=== PATIENT | male | born 1960 | race Two or more races ===

== ENCOUNTER 2023-12-23 09:40 | Day surgery (SDC) | payer OTHER, SELFPAY ==
[2023-12-21 09:08] VITALS: BMI 33.7
--- NOTE | 2023-12-22 12:33 | P.CONAN_ITS ---
Documented by User: Jennifer Gore NP 12/22/23 12:34 HPI - Anesthesia Eval Consult details Narrative: 63yo M for Bilateral Medial Eye Muscle Recession/Resection Medically cleared [facility] Past Medical History Medical History Acute otitis media Headache Cerebral meningioma Basal cell carcinoma Pre-diabetes HTN (hypertension) Surgical History Surgical History Hx of local excision of skin lesion Hx of inguinal hernia repair Hx of umbilical hernia repair No pertinent past surgical history Social History Social History Patient Tobacco Use Status: Never used Tobacco Meds Allergies Allergy/AdvReac Type Severity Reaction Status Date / Time No Known Allergies Allergy Verified 12/23/23 10:39 Home Medications Medication Instructions Recorded Confirmed Last Taken Type hydrochlorothiazide 25 mg tablet 25 mg PO DAILY 12/21/23 12/23/23 12/22/23 07:00 History ibuprofen 800 mg tablet 800 mg PO TID PRN Pain 12/21/23 12/21/23 Unknown History Exam Height,Weight and Vital Signs: Height 5 ft 4 in Weight 89.1 kg Assessment and Plan Assessment Anesthesia Assessment: Chart Reviewed Documented by User: Hollie Santacruz MD 12/23/23 10:58 [facility] Past Medical History Medical History Acute otitis media Headache Cerebral meningioma Basal cell carcinoma Pre-diabetes HTN (hypertension) Surgical History Surgical History Hx of local excision of skin lesion Hx of inguinal hernia repair Hx of umbilical hernia repair No pertinent past surgical history History of Problems with Anesthesia: No Social History Social History Patient Tobacco Use Status: Never used Tobacco Meds Allergies Allergy/AdvReac Type Severity Reaction Status Date / Time No Known Allergies Allergy Verified 12/23/23 10:39 Home Medications Medication Instructions Recorded Confirmed Last Taken Type hydrochlorothiazide 25 mg tablet 25 mg PO DAILY 12/21/23 12/23/23 12/22/23 07:00 History ibuprofen 800 mg tablet 800 mg PO TID PRN Pain 12/21/23 12/21/23 Unknown History Exam Airway Mallampati Class: III TM Dist: >3cm Neck ROM: Full Denture: Upper Loose/Missing/Broken Teeth: Yes, Upper and Lower Heart: RRR Lungs: CTA Assessment and Plan Assessment Anesthesia Assessment: Anesthesia Plan Discussed Final Anesthetic Review History of Problems with Anesthesia: No NPO: Yes ASA Class: II Final Preanesthetic Review: Meds/Allgs Chart Reviewed, Consent Obtained/Reviewed and Anes Risks/Benef Reviewed Patient Risk: Low Procedure Risk: Low Anesthetic Plan Anesthetic Plan: GA Disposition: Standard PACU
--- OUTSIDE RECORDS SUMMARY | 2023-12-23 09:42 | XMS_ITS | Continuity of Care Document ---
Author Name Unknown Organization [facility] As sociates Address [address] [place], [place] [address] [address] [place] [address]- Care Team Providers Care Manager Staffing Name Role Phone Horacio Boyd Primary Care Physician Encounter [facility] Date(s): 08/07/20 - 09/06/[address] [place] [address]- [facility] Allergies, Adverse Reactions, Alerts Substance Reaction Severity Status NKA Active Medications hydrochlorothiazide 25 mg oral tablet 25 mg, 1, tablet, By Mouth, Daily, Refills 0, Maintenance, 11/27/16 11:42:40 Start Date: 11/27/16 Status: Ordered ibuprofen 600 mg oral tablet TAKE 1 TAB BY MOUTH 4 (FOUR) TIMES DAILY NEEDED FOR PAIN Start Date: 11/16/17 Status: Ordered Problem List Condition Effective Dates Status Health Status Inform ant Obesity (BMI 30-39.9)(Confirmed) Active Cerebral meningioma(Confirmed) Active HTN (hypertension)(Confirmed) Active Encounter for screening colonoscopy(Confirmed) Active Umbilical hernia(Confirmed) Active Social History Social History Type Response Smoking Status Never smoker entered on: 07/31/17 Sex Medical Equipment Implanted Date:11/26/17Target Site:Groin Right Description Quantity MRI Company Model MESH 3D MAX LTWEIGHT RT LG 4 X6 - BARD ([id number]) 1 Bard Unknown MICHAELLE:{01}[id number]{17}[id number]{10}[facility] 0435 Assigning Authority:FDA
--- OUTSIDE RECORDS SUMMARY | 2023-12-23 09:42 | XMS_ITS | Continuity of Care Document ---
Author Name Unknown Organization [facility] Address [address] [place] [address]- Care Team Providers Care Director Of Staff Development Name Role Phone Sandy Velasquez Primary Care Physician [place] [facility] [place] 04/09[place]21 - 05/09/21 [facility] [address] [place] [address] Attending Physician: Robyn Pereira Admitting Physician: Robyn Pereira Referring Physician: AdmtrRobyn Allergies, Adverse Reactions, Alerts Substance Reaction Severity [...] (hypertension)(Confirmed) Active Encounter for screening colonoscopy(Confirmed) Active Postop check(Confirmed) Active Umbilical hernia(Confirmed) Active Social History Social History Type Response Smoking Status Never smoker entered on: 07/31/17 Sex Medical Equipment Implanted Date:09/10/20Target Site:Umbilicus Description Quantity MRI Company Model MESH VENTRALIGHT ECHO CIR 4. 5 - BARD ([id number]) 1 Bard Unknown MICHAELLE:{01}[id number] Assigning Author ity:FDA Implanted Date:11/26/17Target Site:Groin Right Description Quantity MRI Company Model MESH 3D MAX LTWEIGHT RT LG 4 X6 - BARD ([id number]) 1 Bard Unknown MICHAELLE:{01}[id number]{17}[id number]{10}[facility] 0435 Assigning Authority:FDA
--- OUTSIDE RECORDS SUMMARY | 2023-12-23 09:42 | XMS_ITS | Continuity of Care Document ---
Author Name Unknown Organization [facility] Address [address] [place] [address] [address] [place] [address]- Care Team Providers Care Journeyman Machinist Name Role Phone Sandy Velasquez Primary Care Physician [phone] Encounter [facility] Date(s): 03/08/21 - 04/11/[address] [place] [address]- Attending Physician: Amos Haley Referring Physician: Sandy Velasquez Allergies, Adverse Reactions, Alerts Substance Reaction Severity [...] VENTRALIGHT ECHO CIR 4. 5 - BARD ([id number]) 1 Bard Unknown MICHAELLE:{01}[id number] Assigning Author ity:FDA Implanted Date:11/26/17Target Site:Groin Right Description Quantity MRI Company Model MESH 3D MAX LTWEIGHT RT LG 4 X6 - BARD ([id number]) 1 Bard Unknown MICHAELLE:{01}[id number]{17}[id number]{10}[facility] 0435 Assigning Authority:FDA
--- OUTSIDE RECORDS SUMMARY | 2023-12-23 09:42 | XMS_ITS | Continuity of Care Document ---
Author Name Unknown Organization [facility] Address [address] [place] [address] ve [address] [place] [address]- Care Team Providers Care Test Lead Application Testing Name Role Phone Horacio Boyd Primary Care Physician En[place] [facility] [place] Date(s): 07/31/20 - 08/07/[address] [place] [address]- [place] Encounter Diagnosis Umbilical hernia(Discharge Diagnosis) - 07/31/20 Attending Physician: Amos Haley Referring Physician: Ester Pelaez MD Allergies, Adverse Reactions, Alerts Substance Reaction Severity [...] for screening colonoscopy(Confirmed) Active Umbilical hernia(Confirmed) Active Diagnosis Diagnosis Type Effective Dates Health Status Cl inical Service Informant Umbilical hernia Discharge Diagnosis 07/31/20 Procedures Procedure Date Related Diagnosis Body Site Status Laparoscopic robotic repair of right inguinal hernia using surgical mesh 2017 Completed Vital Signs Most recent to oldest [Reference Range]: 1 Height 164 cm (07/31/20 10:31 AM) Weight 94.3 kg (07/31/20 10:31 AM) Pulse Rate [55-90 bpm] 83 bpm (07/31/20 10:31 AM) Body Mass Index [18.5-24.99] 35.06 *>HHI* (07/31/20 10:31 AM) Blood Pressure [90-138/55-84 mm Hg] 161/ 90mm Hg *H* (07/31/20 10:31 AM) Respiratory Rate [16-30 br/min] 18 br/mi n (07/31/20 10:31 AM) Temperature [96.8-100.4 DegF] 97.3 DegF (07/31/20 10:31 AM) Blood pressure sites Arm, left (07/31/20 10:31 AM) Temperature Route Temporal (07/31/20 10:31 AM) Weight Obtained Via Standing scale (07/31/20 10:31 AM) Social History Social History Type Response Smoking Status Never smoker entered on: 07/31/17 Sex Medical Equipment Implanted Date:11/26/17Target Site:Groin Right Description Quantity MRI Company Model MESH 3D MAX LTWEIGHT RT LG 4 X6 - BARD ([id number]) 1 Bard Unknown MICHAELLE:{01}[id number]{17}[id number]{10}[facility] 0435 Assigning Authority:FDA
--- OUTSIDE RECORDS SUMMARY | 2023-12-23 09:42 | XMS_ITS | Continuity of Care Document ---
Author Name Unknown Organization [facility] Address [address] [place] [address]- Care Team Providers Care Air Duct Mechanic Name Role Phone Horacio Boyd Primary Care Physician [phone] En[place] [facility] [place] Date(s): 10/05/19 - 11/16/[address] [address]- [facility] Attending Physician: Jonnie Bullock MD Admitting Physician: Jonnie Bullock MD Referring Physician: Horacio Boyd Allergies, Adverse Reactions, Alerts Substance Reaction Severity Status NKA Active Medications fluocinonide 0.05% topical cream 1 application, Topically, 2 times a day, # 120 Gm, 0 Refills, Maintenance, 11/16/17 11:03:03, Cream Start Date: 11/16/17 Status: Ordered hydrochlorothiazide 25 mg oral tablet 25 mg, 1, tablet, By Mouth, Daily, Refills 0, Maintenance, 11/27/16 11:42:40 Start Date: 11/27/16 Status: Ordered ibuprofen 600 mg oral tablet TAKE 1 TAB BY MOUTH 4 (FOUR) TIMES DAILY NEEDED FOR PAIN Start Date: 11/16/17 Status: Ordered Problem List Condition Effective Dates Status Health Status Inform ant Encounter for screening colonoscopy(Confirmed) Active Social History Social History Type Response Smoking Status Never smoker entered on: 07/31/17 Sex Medical Equipment Implanted Date:11/26/17Target Site:Groin Right Description Quantity MRI Company Model MESH 3D MAX LTWEIGHT RT LG 4 X6 - BARD ([id number]) 1 Bard Unknown MICHAELLE:{01}[id number]{17}[id number]{10}[facility] 0435 Assigning Authority:FDA
--- OUTSIDE RECORDS SUMMARY | 2023-12-23 09:42 | XMS_ITS | Continuity of Care Document ---
Author Name Unknown Organization [facility] ter Address [address] [place] [address]- Care Team Providers Care Wing Commander Name Role Phone Sandy Velasquez Primary Care Physician [phone] Encounter [facility] Date(s): 03/19/23 - 05/21/[address] [address]- Attending Physician: Horacio Boyd Admitting Physician: Horacio Boyd Referring Physician: Horacio Boyd Allergies, Adverse Reactions, Alerts No Known Allergies Medications hydrochlorothiazide 25 mg oral tablet 25 mg, 1, tablet, By Mouth, Daily, Refills 0, Maintenance, 11/27/16 11:42:40 Start Date: 11/27/16 Status: Ordered ibuprofen 600 mg oral tablet TAKE 1 TAB BY MOUTH 4 (FOUR) TIMES DAILY NEEDED FOR PAIN Start Date: 11/16/17 Status: Ordered Problem List Condition Confirmation Course Effective Dates Status Health St atus Informant Obesity (BMI 30-39.9) Confirmed Active Cerebral meningioma Confirmed Active HTN (hypertension) Confirmed Active Encounter for screening colonoscopy Confirmed Active Postop check Confirmed Active Umbilical hernia Confirmed Active Social History Social History Type Response Smoking Status Never smoker entered on: 07/31/17 Sex Implantable Device List Procedure Provider Procedure Date Device Type Site Repair Hernia Umbilical Laparoscopic Samra Azevedo MD 09/10/20 Unknown Umbilicus Device Identifier Serial Number Lot or Batch Number Manufacturing Date Expiration Date Distinct Identification Code MRI Safety Implantable Status Assigning Authority [id number] Unknown [id number] Unknown 06/05/20 Unknown Unknown Active GS1 Procedure Provider Procedure Date Device Type Site Robotic XI Repair Hernia Inguinal Laparo Samra Azevedo MD 11/26/17 Unknown Groin Right Device Identifier Serial Number Lot or Batch Number Manufacturing Date Expiration Date Distinct Identification Code MRI Safety Implantable Status Assigning Authority [id number] Unknown [id number] Unknown 06/05/22 Unknown Unknown Active GS1 Patient Care team information Care Team Personnel Name: Sandy Velasquez Position: [facility] Outreach Member Role: PCP Address: Address: [address] [place] [address]- Care Team Related Persons Name: MIRNA THOMAS Address: [address] [place] [address] Name: PARI BLANCA Address: home [address] [place] [address]
--- OUTSIDE RECORDS SUMMARY | 2023-12-23 09:42 | XMS_ITS | Continuity of Care Document ---
Author Name Unknown Organization [facility] Address [address] [place] [address]- Care Team Providers Care House Detective Name Role Phone Sandy Velasquez Primary Care Physician [id number] Date(s): 04/09/21 - 05/15/22 [facility] [address] [place] [address] Discharge Disposition: A-D/C Home Attending Physician: James Dixon MD Admitting Physician: James Dixon MD Referring Physician: Horacio Boyd Allergies, Adverse [...] Equipment Implanted Date:09/10/20Target Site:Umbilicus Description Quantity MRI [employer] Model MESH VENTRALIGHT ECHO CIR 4. 5 - BARD ([id number]) 1 Bard Unknown MICHAELLE:{01}[id number] Assigning Author ity:FDA Implanted Date:11/26/17Target Site:Groin Right Description Quantity MRI Company Model MESH 3D MAX LTWEIGHT RT LG 4 X6 - BARD ([id number]) 1 Bard Unknown MICHAELLE:{01}[id number]{17}[id number]{10}[facility] 0435 Assigning Authority:FDA
--- OUTSIDE RECORDS SUMMARY | 2023-12-23 09:43 | XMS_ITS | Continuity of Care Document ---
Author Name Unknown Organization [facility] Address [address] [place] [address]- Care Team Providers Care Provisioning Analyst Name Role Phone Horacio Boyd Primary Care Physician En[place] [facility] [place] Date(s): 10/17/19 - 12/10/[address] [address]- [facility] Attending Physician: Jonnie Bullock MD Admitting Physician: [...] LTWEIGHT RT LG 4 X6 - BARD ([id number]) 1 Bard Unknown MICHAELLE:{01}[id number]{17}[id number]{10}[facility] 0435 Assigning Authority:FDA
--- OUTSIDE RECORDS SUMMARY | 2023-12-23 09:43 | XMS_ITS | Continuity of Care Document ---
Author Name Unknown Organization [facility] Address [address] [place] [address]- Care Team Providers Care Spool Sorter Name Role Phone Horacio Boyd Primary Care Physician [phone] [place] [facility] [place] 11/10/19 - 11/20/[address] [address] [facility] Attending Physician: Robyn Pereira Admitting Physician: Robyn Pereira Referring Physician: Robyn Pereira Allergies, Adverse Reactions, Alerts Substance Reaction Severity [...] LTWEIGHT RT LG 4 X6 - BARD ([id number]) 1 Bard Unknown MICHAELLE:{01}[id number]{17}[id number]{10}[facility] 0435 Assigning Authority:FDA
--- OUTSIDE RECORDS SUMMARY | 2023-12-23 09:43 | XMS_ITS | Continuity of Care Document ---
Author Name Unknown Organization [facility] Address [address] [place] [address] [address] [place] [address]- Care Team Providers Care Deputy Sheriff Lieutenant Name Role Phone Sandy Velasquez Primary Care Physician En[place] [facility] [place] 03/12/21 - 04/11/[address] [place], [place] [address] Attending Physician: Admsebastian, Robyn Admitting Physician: AdmtrRobyn Referring Physician: Admtr, Ar8 Allergies, Adverse Reactions, Alerts Substance Reaction Severity [...] VENTRALIGHT ECHO CIR 4. 5 - BARD ([id number]) 1 Bard Unknown MICHAELLE:{01}[id number] Assigning Author ity:FDA Implanted Date:11/26/17Target Site:Groin Right Description Quantity MRI Company Model MESH 3D MAX LTWEIGHT RT LG 4 X6 - BARD ([id number]) 1 Bard Unknown MICHAELLE:{01}[id number]{17}[id number]{10}[facility] 0435 Assigning Authority:FDA
--- OUTSIDE RECORDS SUMMARY | 2023-12-23 09:43 | XMS_ITS | Continuity of Care Document ---
Author Name Unknown Organization [facility] Address [address] [place], [place] [address] [address] [place] [address]- Care Team Providers Care Nitro Man Name Role Phone Horacio Boyd Primary Care Physician En[place] [facility] [place] [place] Date(s): 10/15/20 - 11/14/[address] [place], [place] [address] Attending Physician: Robyn Pereira Admitting Physician: Admtr, Robyn Referring Physician: Admtr, Robyn Allergies, Adverse Reactions, Alerts Substance Reaction Severity [...] VENTRALIGHT ECHO CIR 4. 5 - BARD ([id number]) 1 Bard Unknown MICHAELLE:{01}[id number] Assigning Author ity:FDA Implanted Date:11/26/17Target Site:Groin Right Description Quantity MRI Company Model MESH 3D MAX LTWEIGHT RT LG 4 X6 - BARD ([id number]) 1 Bard Unknown MICHAELLE:{01}[id number]{17}[id number]{10}[facility] 0435 Assigning Authority:FDA
--- OUTSIDE RECORDS SUMMARY | 2023-12-23 09:43 | XMS_ITS | Continuity of Care Document ---
Author Name Unknown Organization [facility] ter Address [address] [place] [address]- Care Team Providers Care Escort Patients Name Role Phone Horacio Boyd Primary Care Physician En[place] [facility] Date(s): 09/10/20 - 09/10/[address] [address]- [facility] Discharge Disposition: A-D/C Home Attending Physician: Samra Azevedo MD Admitting Physician: Samra Azevedo MD Referring Physician: Samra Azevedo MD Allergies, Adverse Reactions, Alerts Substance Reaction Severity Status NKA Active Medications hydrochlorothiazide 25 mg oral tablet 25 mg, 1, tablet, By Mouth, Daily, Refills 0, Maintenance, 11/27/16 11:42:40 Start Date: 11/27/16 Status: Ordered ibuprofen 600 mg oral tablet TAKE 1 TAB BY MOUTH 4 (FOUR) TIMES DAILY NEEDED FOR PAIN Start Date: 11/16/17 Status: Ordered oxyCODONE 5 mg oral tablet 5 mg, 1, tablet, By Mouth, Every 4 hours, PRN, for 3 days, # 12 tablet, Refills 0, Tot. Refills 0, Acute 09/13/20 14:47:00 EST, for pain, 09/10/20 14:47:00 EST, Route to Pharmacy Electronically, [facility], Partial fill upon patient requ... Start Date: 09/10/20 Stop Date: 09/13/20 Status: Ordered Problem List Condition Effective Dates Status Health Status Inform ant Obesity (BMI 30-39.9)(Confirmed) Active Cerebral meningioma(Confirmed) Active HTN (hypertension)(Confirmed) Active Encounter for screening colonoscopy(Confirmed) Active Umbilical hernia(Confirmed) Active Procedures Procedure Date Related Diagnosis Body Site Status Laparoscopic umbilical herni oplasty using synthetic mesh 09/10/20 Completed Vital Signs Most recent to oldest [Reference Range]: 1 2 3 Height 165.10 cm (09/10/20 1:01 PM) 165.10 cm (09/04/20 4:21 PM) Weight 90.4 kg (09/10/20 1:01 PM) 95.91 kg (09/04/20 4:21 PM) Oxygen Saturation [94-100 %] 95 % (09/10/20 5:15 PM) 95 % (09/10/20 5:00 PM) 94 % (09/10/20 4:45 PM) Pulse Rate [55-90 bpm] 88 bpm (09/10/20 1:01 PM) Body Mass Index [18.5-24.99] 33.16 *>HHI* (09/10/20 1:01 PM) 35.19 *>HHI* (09/04/20 4:21 PM) Blood Pressure [90-138/55-84 mm Hg] 117/85mm Hg (09/10/20 5:00 PM) 120/78mm Hg (09/10/20 4:45 PM) 129/94mm Hg (09/10/20 4:30 PM) Respiratory Rate [16-30 br/min] 16 br/min (09/10/20 5:00 PM) 13 br/min *L* (09/10/20 4:45 PM) 9 br/min *L* (09/10/20 4:30 PM) Temperature [96.8-100.4 DegF] 97.6 DegF (09/10/20 5:00 PM) 97.1 DegF (09/10/20 3:00 PM) 97.4 DegF (09/10/20 1:01 PM) Liters per Minute 5 L/min (09/10/20 3:00 PM) Mode of Delivery (Oxygen) Room air (09/10/20 5:15 PM) Room air (09/10/20 4:00 PM) Room air (09/10/20 3:15 PM) Blood pressure sites Arm, right (09/10/20 4:00 PM) Arm, right (09/10/20 3:00 PM) Arm, right (09/10/20 1:01 PM) Temperature Route Temporal (09/10/20 5:00 PM) Temporal (09/10/20 3:00 PM) Temporal (09/10/20 1:01 PM) Dry Weight 90.4 kg (09/10/20 1:01 PM) 95.91 kg (09/04/20 4:21 PM) Weight Obtained Via Standing scale (09/10/20 1:01 PM) Patient/family stated (09/04/20 4:21 PM) Dry Weight Obtained Via Standing scale (09/10/20 1:01 PM) Social History Social History Type Response Smoking Status Never smoker entered on: 07/31/17 Sex Medical Equipment Implanted Date:09/10/20Target Site:Umbilicus Description Quantity MRI In[employer] Model MESH VENTRALIGHT ECHO CIR 4. 5 - BARD ([id number]) 1 Bard Unknown MICHAELLE:{01}[id number] Assigning Author ity:FDA Implanted Date:11/26/17Target Site:Groin Right Description Quantity MRI In[employer] Model MESH 3D MAX LTWEIGHT RT LG 4 X6 - BARD ([id number]) 1 Bard Unknown MICHAELLE:{01}[id number]{17}[id number]{10}[facility] 0435 Assigning Authority:FDA
--- OUTSIDE RECORDS SUMMARY | 2023-12-23 09:43 | XMS_ITS | Continuity of Care Document ---
Author Name Unknown Organization [facility] Address [address] [place] [address], [address] [place] [address]- Care Team Providers Care Horse Farm Manager Name Role Phone Sandy Velasquez Primary Care Physician [phone] Encounter [facility] [place] Date(s): 05/21/22 - 06/20/22 [facility] [address] [place] [address], [address] [place], [place] [address] Attending Physician: Robyn Pereira Admitting Physician: AdmRobyn cortes Referring Physician: AdmtrRobyn Allergies, Adverse Reactions, Alerts No Known Allergies [...] VENTRALIGHT ECHO CIR 4. 5 - BARD ([id number]) 1 Bard Unknown MICHAELLE:{01}[id number] Assigning Author ity:FDA Implanted Date:11/26/17Target Site:Groin Right Description Quantity MRI Company Model MESH 3D MAX LTWEIGHT RT LG 4 X6 - BARD ([id number]) 1 Bard Unknown MICHAELLE:{01}[id number]{17}[id number]{10}[facility] 0435 Assigning Authority:FDA
--- OUTSIDE RECORDS SUMMARY | 2023-12-23 09:43 | XMS_ITS | Continuity of Care Document ---
Author Name Unknown Organization [facility] Address [address] [place] [address]- Care Team Providers Care Pantographer Name Role Phone Horacio Boyd Primary Care Physician [phone] [place] [facility] [place]16[place] 01/22/20 [facility] [address] [place] [address] [facility] Discharge Disposition: A-D/C Home Attending Physician: James Dixon MD Admitting Physician: James Dixon MD Referring Physician: Galen Santos MD Allergies, Adverse Reactions, Alerts Substance Reaction [...] Inform ant Encounter for screening colonoscopy(Confirmed) Active Vital Signs Most recent to oldest [Reference Range]: 1 Height 164 cm (09/28/19 2:42 PM) Weight 95.9 kg (09/28/19 2:42 PM) Pulse Rate [55-90 bpm] 89 bpm (09/28/19 2:42 PM) Body Mass Index [18.5-24.99] 35.66 *>HHI* (09/28/19 2:42 PM) Blood Pressure [90-138/55-84 mm Hg] 153/ 90mm Hg *H* (09/28/19 2:42 PM) Temperature [96.8-100.4 DegF] 97.4 DegF (09/28/19 2:42 PM) Blood pressure sites Arm, left (09/28/19 2:42 PM) Temperature Route Temporal (09/28/19 2:42 PM) Dry Weight 95.9 kg (09/28/19 2:42 PM) Weight Obtained Via Standing scale (09/28/19 2:42 PM) Dry Weight Obtained Via Standing scale (09/28/19 2:42 PM) Social History Social History Type Response Smoking Status Never smoker entered on: 07/31/17 Sex Medical Equipment Implanted Date:11/26/17Target Site:Groin Right Description Quantity MRI Company Model MESH 3D MAX LTWEIGHT RT LG 4 X6 - BARD ([id number]) 1 Bard Unknown MICHAELLE:{01}[id number]{17}[id number]{10}[facility] 0435 Assigning Authority:FDA
--- OUTSIDE RECORDS SUMMARY | 2023-12-23 09:43 | XMS_ITS | Continuity of Care Document ---
Author Name Unknown Organization [facility] Address [address] [place] [address], [address] [place] [address]- Care Team Providers Care Package Dyer Name Role Phone Sandy Velasquez Primary Care Physician [phone] Encounter [facility] [place] Date(s): 05/01/22 - 06/20/22 [facility] [address] [place] [address], [address] [place] [address]- Attending Physician: Deandre Maguire MD Referring Physician: Horacio Boyd Allergies, Adverse [...] VENTRALIGHT ECHO CIR 4. 5 - BARD ([id number]) 1 Bard Unknown MICHAELLE:{[id number] Assigning Author ity:FDA Implanted Date:11/26/17Target Site:Groin Right Description Quantity MRI Company Model MESH 3D MAX LTWEIGHT RT LG 4 X6 - BARD ([id number]) 1 Bard Unknown MICHAELLE:{[id number] Assigning Authority:FDA
--- OUTSIDE RECORDS SUMMARY | 2023-12-23 09:43 | XMS_ITS | Continuity of Care Document ---
Author Name Unknown Organization [facility] Address [address] [address]- Care Team Providers Care Principal Embedded Software Engineer Name Role Phone Horacio Boyd Primary Care Physician [phone] En[place] [facility] [id number] Date(s): 09/06/20 - 09/13/20 [facility] [address] [address] Attending Physician: Yaritza Guerrier MD Referring Physician: Samra Azevedo MD Allergies, [...] for screening colonoscopy(Confirmed) Active Umbilical hernia(Confirmed) Active Vital Signs Most recent to oldest [Reference Range]: 1 Height 165.10 cm (09/06/20 8:03 AM) Weight 95.1 kg (09/06/20 8:03 AM) Oxygen Saturation [94-100 %] 98 % (09/06/20 8:03 AM) Pulse Rate [55-90 bpm] 94 bpm *H* (09/06/20 8:03 AM) Body Mass Index [18.5-24.99] 34.89 *>HHI* (09/06/20 8:03 AM) Blood Pressure [90-138/55-84 mm Hg] 134/ 79mm Hg (09/06/20 8:03 AM) Respiratory Rate [16-30 br/min] 23 br/mi n (09/06/20 8:03 AM) Temperature [96.8-100.4 DegF] 97.5 DegF (09/06/20 8:03 AM) Blood pressure sites Arm, left (09/06/20 8:03 AM) Temperature Route Temporal (09/06/20 8:03 AM) Social History Social History Type Response Smoking Status Never smoker entered on: 07/31/17 Sex Medical Equipment Implanted Date:09/10/20Target Site:Umbilicus Description Quantity MRI [employer] Model MESH VENTRALIGHT ECHO CIR 4. 5 - BARD ([id number]) 1 Bard Unknown MICHAELLE:{[id number] Assigning Author ity:FDA Implanted Date:11/26/17Target Site:Groin Right Description Quantity MRI [employer] Software Model MESH 3D MAX LTWEIGHT RT LG 4 X6 - BARD ([id number]) 1 Bard Unknown MICHAELLE:{01}[id number]{10}[id number] 0435 Assigning Authority:FDA
--- OUTSIDE RECORDS SUMMARY | 2023-12-23 09:43 | XMS_ITS | Continuity of Care Document ---
Author Name Unknown Organization [facility] Address [address] [place], [place] [address] [address] [place] [address]- Care Team Providers Care Checkroom Chief Name Role Phone Horacio Boyd Primary Care Physician [phone] Encounter [facility] [place] Date(s): 10/15/20 - 10/22/[address] [place] [address]- Encounter Diagnosis Umbilical hernia(Discharge Diagnosis) - 10/15/20 Attending Physician: Amos Haley Referring Physician: Horacio Boyd Allergies, Adverse Reactions, [...] Active Postop check(Confirmed) Active Umbilical hernia(Confirmed) Active Diagnosis Diagnosis Type Effective Dates Health Status Cl inical Service Informant Umbilical hernia Discharge Diagnosis 10/15/20 Vital Signs Most recent to oldest [Reference Range]: 1 Height 165.10 cm (10/15/20 10:48 AM) Weight 93.3 kg (10/15/20 10:48 AM) Pulse Rate [55-90 bpm] 94 bpm *H* (10/15/20 10:48 AM) Body Mass Index [18.5-24.99] 34.23 *>HHI* (10/15/20 10:48 AM) Blood Pressure [90-138/55-84 mm Hg] 152/ 88mm Hg *H* (10/15/20 10:48 AM) Blood pressure sites Arm, left (10/15/20 10:48 AM) Temperature Route Temporal (10/15/20 10:48 AM) Social History Social History Type Response Smoking Status Never smoker entered on: 07/31/17 Sex Medical Equipment Implanted Date:09/10/20Target Site:Umbilicus Description Quantity MRI Company Model MESH VENTRALIGHT ECHO CIR 4. 5 - BARD ([id number]) 1 Bard Unknown MICHAELLE:{01}[id number] Assigning Author ity:FDA Implanted Date:11/26/17Target Site:Groin Right Description Quantity MRI Company Model MESH 3D MAX LTWEIGHT RT LG 4 X6 - BARD ([id number]) 1 Bard Unknown MICHAELLE:{01}[id number]{10}[id number] 0435 Assigning Authority:FDA
[2023-12-23 10:39] VITALS: BMI 32.9
[2023-12-23 10:46] VITALS: BP 135/90; PULSE 92; RESP 16; TEMP 36.9; O2SAT 97
[2023-12-23] MEDS: Lactated Ringers 1,000 ML 100 ML IVCONT (11:07)
[2023-12-23 13:20] VITALS: BP 147/79; PULSE 94; RESP 20; TEMP 36.4; O2SAT 96
[2023-12-23 13:25] VITALS: BP 136/82; PULSE 94; RESP 20; O2SAT 98
[2023-12-23 13:30] VITALS: BP 132/82; PULSE 94; RESP 20; O2SAT 97
[2023-12-23 13:35] VITALS: BP 135/90; PULSE 93; RESP 20; TEMP 36.6; O2SAT 95
[2023-12-23 13:50] VITALS: BP 143/91; PULSE 88; RESP 20; TEMP 36.2; O2SAT 95
--- NOTE | 2023-12-23 14:23 | HO.OPHTHAL ---
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 Procedures 1. Transposition of the left superior rectus to the left lateral rectus muscle 2. Transposition of the left inferior rectus to the left lateral rectus muscle. Surgeon Dr. Brewer. Anesthesia general. Complications none. The patient was brought to the operative room placed under general anesthesia. The left eye was prepped and draped in the usual sterile ophthalmic fashion. Forced ductions were within normal limits. A peritomy was created from the 12:00 o'clock around to the 6 o'clock position and the inferior rectus muscle was hooked and secured with a double-armed Vicryl suture. It was disinserted from the globe and left for reattachment later. The superior rectus muscle was hooked and secured with a double-armed Vicryl suture and then disinserted from the globe. It was reattached to a position adjacent to the lateral rectus muscle overlapping the insertion by approximately 3 mm and following the spiral of alexander. The inferior rectus muscle was then transposed to a position adjacent to the lateral rectus muscle insertion overlapping by approximately 3 mm and following the spiral of alexander. Conjunctiva was closed with interrupted Vicryl sutures. The patient was then awoken from general anesthesia and discharged to postoperative recovery in good condition.
== END 2023-12-23 14:24 | disposition home or self-care (01) ==
PROVIDERS: PCP Physician Assistant; Visit Provider Ophthalmology
PROC: (CPT 67320; principal; 2023-12-23 11:50)
DX: H50.05 Alternating esotropia (principal); H49.22 Sixth [abducent] nerve palsy, left eye
CPT/HCPCS: 67320; 67311; J0131; J1100; J1596; J1885; J2405; J2704; J3010